=== PATIENT | female | born 1995 | race Caucasian/White ===

== ENCOUNTER 2017-08-25 21:28 | Emergency (ER) | payer OTHER ==
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
[2017-08-25 21:37] VITALS: BP 134/68; PULSE 75; TEMP 98.6; BMI 23.9
[2017-08-25 21:52] LABS: URINE APPEARANCE SLCLOUDY; URINE BILIRUBIN NEGATIVE (NEGATIVE); URINE BLOOD 1+ (NEGATIVE); URINE COLOR YELLOW; URINE GLUCOSE (UA) NEGATIVE (NEGATIVE); URINE KETONE NEGATIVE (NEGATIVE); URINE NITRITE NEGATIVE (NEGATIVE); URINE PROTEIN NEGATIVE (NEGATIVE); URINE UROBILINOGEN NEGATIVE mg/dL (0.2-1.0)
[2017-08-25 21:59] LABS: URINE LEUK ESTERASE 1+ (NEGATIVE)
--- NOTE | 2017-08-25 22:09 | PDOC ---
History of Present Illness - General Chief Complaint: Injury Stated Complaint: WORK INJURY Time Seen by Provider: 08/25/17 21:48 Past History - Past Medical History Allergies/Adverse Reactions: Allergies Allergy/AdvReac Type Severity Reaction Status Date / Time peanut Allergy Unknown Hives Verified 08/25/17 22:02 soy Allergy Unknown Hives Verified 08/25/17 22:02 Home Medications: Ambulatory Orders NK [No Known Home Medication] 08/25/17 COPD: No - Suicide/Smoking/Psychosocial Hx Smoking History: Never smoked Have you smoked in the past 12 months: No Information on smoking cessation initiated: No Hx Alcohol Use: No Drug/Substance Use Hx: No Substance Use Type: None *Physical Exam - Vital Signs Last Vital Signs Temp Pulse Resp BP Pulse Ox 98.6 F 75 18 134/68 99 08/25/17 21:33 08/25/17 21:33 08/25/17 21:33 08/25/17 21:33 08/25/17 21:33 ED Treatment Course - ADDITIONAL ORDERS Additional order review: Laboratory Results 08/25/17 08/25/17 21:42 21:42 Urine Color Yellow Urine Appearance Slcloudy Urine pH 5.0 Ur Specific [place] 1.029 Urine Protein Negative Urine Glucose (UA) Negative Urine Ketones Negative Urine Blood 1+ H Urine Nitrite Negative Urine Bilirubin Negative Urine Urobilinogen Negative Ur Leukocyte Esterase 1+ H Urine HCG, Qual Positive *DC/Admit/Observation/Transfer - Referrals Referrals: ON STAFF,NOT [Primary Care Provider] - - Patient Instructions - Post Discharge Activity
[2017-08-25] MEDS ORDERED: ACETAMINOPHEN 325 MG TABLET (FP) PO ONE (22:13)
[2017-08-25 22:21] LABS: EPI CELLS FEW /HPF (FEW); URINE BACTERIA RARE /hpf (NONE SEEN); URINE MUCUS MODERATE
[2017-08-25 22:29] LABS: BASO % 0.3 % (0-2.0); EOS % 1.1 % (0-4.5); HEMATOCRIT 37.1 % (32.4-45.2); HEMOGLOBIN 12.9 GM/dL (10.7-15.3); LYMPH % 19.2 % (8-40); MCH 31.6 pg (25.7-33.7); MCHC 34.9 g/dl (32.0-36.0); MEAN CELL VOLUME 90.7 fl (80-96); MEAN PLT VOLUME 8.6 fl (7.5-11.1); MONO % 5.2 % (3.8-10.2); NEUT % 74.2 % (42.8-82.8); PLATELET COUNT 250 K/MM3 (134-434); RBC 4.09 M/mm3 (3.60-5.2); RDW 13.2 % (11.6-15.6); WHITE BLOOD COUNT 12.5 K/mm3 (4.0-10.0)
[2017-08-25] MEDS ORDERED: ACETAMINOPHEN 325 MG TABLET (FP) ONE (22:29)
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
== END 2017-08-26 01:49 | disposition home or self-care (01) ==
LOC: JERFT 21:28 → JER 21:28
DX: O26.891 Other specified pregnancy related conditions, first trimester (principal); M54.6 Pain in thoracic spine; Z3A.12 12 weeks gestation of pregnancy; V89.2XXA Person injured in unspecified motor-vehicle accident, traffic, initial encounter; Y92.488 Other paved roadways as the place of occurrence of the external cause; Y99.0 Civilian activity done for income or pay; Y93.89 Activity, other specified
CPT/HCPCS: 36415; 76815-TC; 81003; 81015; 84702; 84703; 85025; 86850; 86900; 86901; 99281-25